=== PATIENT | male | born 1950 | race Hispanic/Latino ===

== ENCOUNTER 2020-09-15 09:59 | Observation (INO) | payer MEDICARE, OTHER ==
[~2020-09-15] VITALS: Ht 170.2 cm; Wt 97.5 kg
[2020-09-15 10:47] LABS: BASOPHILS % (AUTO) 0.4 % (0.0-5.0); EOSINOPHILS % (AUTO) 2.5 % (0.0-8.0); HEMATOCRIT 51.5 % (42-54); LYMPHOCYTES % (AUTO) 14.4 % (21.0-51.0); MEAN CORPUSCULAR HEMOGLOBIN 28.4 pg (27.0-33.0); MEAN CORPUSCULAR HGB CONC 31.5 g/dL (32.0-36.0); MEAN CORPUSCULAR VOLUME 90.2 fL (79-99); MONOCYTES % (AUTO) 5.9 % (3.0-13.0); NEUTROPHILS % (AUTO) 76.2 % (40.0-77.0); PLATELET COUNT (AUTO) 176 K/uL (130-400); RED BLOOD CELL COUNT(AUTO) 5.71 MIL/uL (4.50-6.20); RED CELL DISTRIBUTION WIDTH 15.4 % (11.0-15.5); WHITE BLOOD COUNT (AUTO) 13.3 K/uL (4.8-10.8)
[2020-09-15 11:00] LABS: CARBON DIOXIDE 30 mmol/L (21-32); CHLORIDE 102 mmol/L (101-111); CREATININE 1.2 mg/dL (0.5-1.5); GLOMERULAR FILTR. RATE CALC 64 mL/min (>60); GLUCOSE,RANDOM 243 mg/dL (70-105); POTASSIUM 3.9 mmol/L (3.5-5.1); SODIUM SERUM 139 mmol/L (136-145); UREA NITROGEN, BLOOD 19 mg/dL (7-18)
[2020-09-15] MEDS ORDERED: CEFTRIAXONE SODIUM 2 GM VIAL ONE (11:00)
[2020-09-15 11:01] LABS: INR 1.04 (0.85-1.15); PROTHROMBIN TIME 11.3 SEC (9.6-11.6)
[2020-09-15 11:02] LABS: PARTIAL THROMBOPLASTIN TIME 24.9 SEC (26.3-35.5)
[2020-09-15 11:10] LABS: ALANINE AMINOTRANSFERASE 31 U/L (12-78); ALBUMIN 3.8 g/dL (3.5-5.0); ASPARTATE AMINOTRANSFERASE 25 U/L (10-37); BILIRUBIN,TOTAL 0.3 mg/dL (0.2-1.0); CREATINE KINASE, TOTAL 109 U/L (21-232); MYOGLOBIN 70 ng/mL (10-92); TOTAL PROTEIN, SERUM 7.1 g/dL (6.0-8.3); TROPONIN I < 0.04 ng/mL (0.00-0.06)
[2020-09-15] MEDS ORDERED: APIXABAN 2.5 MG TABLET PO ONE (15:42)
[2020-09-15] MEDS: SODIUM CHLORIDE 0.9% 1000ML 1,000 ML IV SCH (16:00)
[2020-09-15] MEDS ORDERED: SODIUM CHLORIDE 0.9% 1000ML 1,000 ML IV SCH (18:30)
[2020-09-15] MEDS ORDERED: TAMS-1 PO (18:46)
[2020-09-15] MEDS ORDERED: SIMV-46 PO (18:46)
[2020-09-15] MEDS ORDERED: TEST2.5G16 TD (18:46)
[2020-09-15] MEDS ORDERED: OMEP40CA13 PO (18:46)
[2020-09-15] MEDS ORDERED: VALS1TAB73 PO (18:46)
[2020-09-15] MEDS ORDERED: FINA5TAB41 PO (18:46)
[2020-09-15] MEDS ORDERED: FERR-63 PO (18:52)
[2020-09-15] MEDS ORDERED: VITA1TAB39 PO (18:52)
[2020-09-15] MEDS ORDERED: FISH1CAP PO (18:52)
[2020-09-15] MEDS ORDERED: MV-M1TAB20 PO (18:52)
[2020-09-15] MEDS ORDERED: MAGN250T10 PO (18:52)
[2020-09-15] MEDS ORDERED: CINN500C PO (18:52)
[2020-09-15] MEDS ORDERED: MELA10TA2 PO (18:52)
[2020-09-15] MEDS ORDERED: NAPR220C15 PO (18:52)
[2020-09-15] MEDS ORDERED: ASCO500C18 PO (18:52)
[2020-09-15 19:00] VITALS: BP 165/104
[2020-09-15] MEDS: APIXABAN 5 MG TABLET PO SCH (20:35)
[2020-09-15] MEDS: CLINDAMYCIN 300 MG/D5W 50 ML 50 ML IV SCH (21:30)
[2020-09-15] MEDS: CEFTRIAXONE SODIUM 1 GM IVP SCH (21:30)
[2020-09-15 23:36] VITALS: BP 143/84
[2020-09-16] MEDS: CLINDAMYCIN 300 MG/D5W 50 ML 50 ML IV SCH ×2 (03:38→08:45)
[2020-09-16 03:42] VITALS: BP 161/79
[2020-09-16] MEDS: SODIUM CHLORIDE 0.9% 1000ML 1,000 ML IV SCH (05:30)
[2020-09-16] MEDS: INSULIN HUMULIN R 100 UNIT/ML 3ML SQ SCH ×2 (05:31→11:30)
[2020-09-16] MEDS ORDERED: PANTOPRAZOLE SODIUM 40 MG TABLET.DR PO SCH (07:30)
[2020-09-16] MEDS ORDERED: INSULIN HUMULIN R 100 UNIT/ML 3ML SQ SCH (07:30)
[2020-09-16 08:10] VITALS: BP 168/78
[2020-09-16] MEDS: APIXABAN 5 MG TABLET PO SCH (08:39)
[2020-09-16] MEDS: CEFTRIAXONE SODIUM 1 GM IVP SCH (08:40)
[2020-09-16] MEDS: INSULIN LISPRO 100 UNIT/ML 3ML SQ SCH ×2 (08:54→12:00)
[2020-09-16] MEDS ORDERED: FERROUS SULFATE 325 MG TABLET.DR PO SCH (09:00)
[2020-09-16] MEDS ORDERED: HYDROCHLOROTHIAZIDE 25 MG TABLET PO SCH (09:00)
[2020-09-16] MEDS ORDERED: FISH OIL 1000 MG/CAP PO SCH (09:00)
[2020-09-16] MEDS ORDERED: MAGNESIUM OXIDE 400 MG TABLET PO SCH (09:00)
[2020-09-16] MEDS ORDERED: ASCORBIC ACID 500 MG TAB PO SCH (09:00)
[2020-09-16] MEDS ORDERED: LOSARTAN 50 MG TABLET PO SCH (09:00)
[2020-09-16] MEDS ORDERED: TESTOSTERONE 2.5 GM TD SCH (09:00)
[2020-09-16] MEDS ORDERED: MULTIVITAMIN WITH MINERALS TABLET PO SCH (09:00)
[2020-09-16] MEDS ORDERED: NAPROXEN 500 MG TABLET PO SCH (09:00)
[2020-09-16] MEDS ORDERED: NON-FORMULARY MEDICATION 1 EACH (Mv-Mn/Iron/FA/Herbal Cmplx#190 (Vitamin D3 Complete Caple PO SCH (09:00)
[2020-09-16 11:25] VITALS: BP 161/68
[2020-09-16] MEDS ORDERED: LABETALOL HCL 5 MG/ML 20ML VIAL IV ONE (12:29)
[2020-09-16 12:50] VITALS: BP 148/80
[2020-09-16] MEDS ORDERED: LABETALOL 20 MG/4 ML DISP.SYRIN IV SCH (13:15)
[2020-09-16] MEDS ORDERED: TAMSULOSIN HCL 0.4 MG CAP.ER.24H PO SCH (21:00)
[2020-09-16] MEDS ORDERED: FINASTERIDE 5 MG TABLET PO SCH (21:00)
[2020-09-16] MEDS ORDERED: INSULIN GLARGINE 100 UNITS/ML 10 ML VIAL SQ SCH (21:00)
[2020-09-16] MEDS ORDERED: SIMVASTATIN 20 MG TABLET PO SCH (21:00)
[2020-09-17] MEDS ORDERED: TESTOSTERONE 2.5 GM TD SCH (09:00)
== END 2020-09-16 13:50 | disposition home or self-care (01) ==
LOC: EDH 09:59 → INTOOBSV 14:33 → EDHIP 14:33 → 3BH 17:47
PROVIDERS: ADMIT Hospitalist; ATTEND Hospitalist
DX: I82.401 Acute embolism and thrombosis of unspecified deep veins of right lower extremity (principal); Z20.822 Contact with and (suspected) exposure to COVID-19; L03.115 Cellulitis of right lower limb; D72.829 Elevated white blood cell count, unspecified; E11.65 Type 2 diabetes mellitus with hyperglycemia; I10 Essential (primary) hypertension; E78.5 Hyperlipidemia, unspecified; J44.9 Chronic obstructive pulmonary disease, unspecified; G47.33 Obstructive sleep apnea (adult) (pediatric); E78.00 Pure hypercholesterolemia, unspecified; Z87.891 Personal history of nicotine dependence; Z99.89 Dependence on other enabling machines and devices; Z79.899 Other long term (current) drug therapy
CPT/HCPCS: 36415; 71045; 80053; 82550; 82948 ×2; 83605 ×2; 83874; 84145; 84484; 85025; 85610; 85730; 86140; 87040 ×2; 87426; 93005; 93971; 96361; 96365; 96366; 96372; 96375 ×2; 96376; 99285; G0378 ×23; J0696 ×3; J3490 ×2; J7030; U0003

== ENCOUNTER 2023-09-22 14:21 | Emergency (ER) | payer OTHER ==
[~2023-09-22] VITALS: Ht 170.2 cm; Wt 88.5 kg
[~2023-09-22 14:21] MED LIST: ASCO500C18 PO; CINN500C PO; FERR-63 PO; FINA5TAB41 PO; FISH1CAP PO; MAGN250T10 PO; MELA10TA2 PO; MV-M1TAB20 PO; NAPR220C15 PO; OMEP40CA21 PO; SIMV-46 PO; TAMS-1 PO; TEST2.5G16 TD; VALS1TAB73 PO; VITA1TAB39 PO
[2023-09-22 19:10] LABS: BASOPHILS # (AUTO) 0.04 K/uL (0.00-0.20); BASOPHILS % (AUTO) 0.4 % (0.0-5.0); EOSINOPHILS # (AUTO) 0.33 K/uL (0.00-0.70); EOSINOPHILS % (AUTO) 3.1 % (0.0-8.0); HEMATOCRIT 49.2 % (42-54); IMMATURE GRANULOCYTE ABSOLUTE 0.05 K/uL (0-1); LYMPHOCYTES # (AUTO) 2.5 K/uL (1.0-4.8); LYMPHOCYTES % (AUTO) 23.6 % (21.0-51.0); MEAN CORPUSCULAR HEMOGLOBIN 28.5 pg (27.0-33.0); MEAN CORPUSCULAR HGB CONC 32.5 g/dL (32.0-36.0); MEAN CORPUSCULAR VOLUME 87.7 fL (79-99); MONOCYTES # (AUTO) 0.8 K/uL (0.1-1.0); MONOCYTES % (AUTO) 7.5 % (3.0-13.0); NEUTROPHILS # (AUTO) 6.9 K/uL (1.8-7.7); NEUTROPHILS % (AUTO) 64.9 % (40.0-77.0); PLATELET COUNT (AUTO) 345 K/uL (130-400); RED BLOOD CELL COUNT(AUTO) 5.61 MIL/uL (4.50-6.20); RED CELL DISTRIBUTION WIDTH 15.3 % (11.0-15.5); WHITE BLOOD COUNT (AUTO) 10.7 K/uL (4.8-10.8)
[2023-09-22 19:49] LABS: APPEARANCE,URINE CLEAR (CLEAR); BILIRUBIN,URINE NEGATIVE (NEGATIVE); COLOR,URINE YELLOW (YELLOW); GLUCOSE, URINE (UA) NEGATIVE (NEGATIVE); KETONES,URINE NEGATIVE (NEGATIVE); LEUKOCYTE ESTERASE ,URINE NEGATIVE Leu/uL (NEGATIVE); NITRATE,URINE NEGATIVE (NEGATIVE); OCCULT BLOOD,URINE NEGATIVE (NEGATIVE); PH,URINE 6.5 (5.0-8.0); PROTEIN,URINE NEGATIVE (NEGATIVE); UROBILINOGEN,URINE 0.2 mg/dL (0.2-1.0)
[2023-09-22 19:56] LABS: ADD UA MICROSCOPIC NO
[2023-09-22] MEDS ORDERED: TAMS-1 PO (20:41)
[2023-09-22] MEDS ORDERED: LACT20PA6 PO (20:41)
[2023-09-22 20:47] VITALS: BP 136/89; PULSE 82; RESP 18; O2SAT 98
== END 2023-09-22 20:58 | disposition home or self-care (01) ==
LOC: EDH 14:21
DX: K80.20 Calculus of gallbladder without cholecystitis without obstruction (principal); K76.89 Other specified diseases of liver; N20.0 Calculus of kidney; Z79.899 Other long term (current) drug therapy; Z98.890 Other specified postprocedural states
CPT/HCPCS: 36415; 74176; 81003; 83690; 84484; 85025; 93005